=== PATIENT | female | born 1975 | race American Indian/Alaskan Native ===

== ENCOUNTER 2018-03-23 11:01 | Emergency (ER) | payer BC, OTHER ==
[2018-03-23 11:24] VITALS: RESP 16; TEMP 98.6; O2SAT 100
--- NOTE | 2018-03-23 11:53 | ED PDOC ---
Arrival/HPI - General Historian: Patient - History of Present Illness Time/Duration: > week Symptom Course: Intermittent Activities at Onset: Other (Walking up stairs) Context: Home <DeloresgreggLidia - Last Filed: 03/23/18 14:37> <Nicanor Clinton - Last Filed: 03/23/18 15:22> - General Chief Complaint: Upper Extremity Problem/Injury Time Seen by Provider: 03/23/18 11:21 - History of Present Illness Narrative History of Present Illness (Text): 03/23/18 11:48 This is a 42 year old female with PMH of anemia presenting to the ER for two week history of chest pain, SOB, neck stiffness and right arm numbness. She [place] and felt short of breath with associated chest pain. Since then, her symptoms have been intermittent and provoked with exertion. Chest pain is described as non radiating, sharp and 10/ 10 at worst. She has history of muscle spasms and states her neck stiffness and right arm numbness are similar to past. She went to her PCP on Monday and was told to take iron tablets. She admits to urinary frequency. She denies fevers, chills, nausea, vomiting, abdominal pain, headaches, melena, hematochezia, hematuria, diarrhea, constipation and sick contacts at home. She flew to [place] three weeks ago and had URI three weeks ago. PCP is Dr. Shine at [facility] (Lidia Medellin) Past Medical History - Provider Review Nursing Documentation Reviewed: Yes - Infectious Disease Hx of Infectious Diseases: None - Cardiac Hx Cardiac Disorders: No - Pulmonary Hx Respiratory Disorders: No - Neurological Hx Neurological Disorder: No - HEENT Hx HEENT Disorder: No - Renal Hx Renal Disorder: No - Endocrine/Metabolic Hx Endocrine Disorders: No - Hematological/Oncological Hx Blood Disorders: Yes Hx Anemia: Yes - Integumentary Hx Dermatological Disorder: No - Musculoskeletal/Rheumatological Hx Musculoskeletal Disorders: No - Gastrointestinal Hx Gastrointestinal Disorders: No - Genitourinary/Gynecological Hx Genitourinary Disorders: No - Psychiatric Hx Psychophysiologic Disorder: No Hx Substance Use: No - Anesthesia Hx Anesthesia: Yes <Lidia Medellin - Last Filed: 03/23/18 14:37> Family/Social History - Physician Review Nursing Documentation Reviewed: Yes Family/Social History: Unknown Family HX Smoking Status: Never Smoked Hx Alcohol Use: No Hx Substance Use: No <Lidia Medellin - Last Filed: 03/23/18 14:37> Allergies/Home Meds <Lidia Medellin - Last Filed: 03/23/18 14:37> <TolericoNicanor - Last Filed: 03/23/18 15:22> Allergies/Adverse Reactions: Allergies shellfish derived Allergy (Verified 03/23/18 11:17) RASH Review of Systems - Physician Review All systems were reviewed & negative as marked: Yes - Review of Systems Constitutional: Normal Eyes: Normal. absent: Vision Changes ENT: Normal. absent: Hearing Changes Respiratory: SOB. absent: Cough, Sputum, Wheezing Cardiovascular: Chest Pain. absent: Palpitations, Edema, Syncope Gastrointestinal: Normal. absent: Abdominal Pain, Constipation, Diarrhea, Nausea, Vomiting, Hematemesis Genitourinary Female: Frequency. absent: Dysuria, Hematuria, Vaginal Bleeding Musculoskeletal: Neck Pain, Other (right arm numbness) Skin: Normal Neurological: Normal. absent: Headache Endocrine: Normal. absent: Diaphoresis Psychiatric: Normal <Lidia Medellin - Last Filed: 03/23/18 14:37> Physical Exam Vital Signs Reviewed: Yes Temperature: Afebrile Blood Pressure: Normal Pulse: Regular Respiratory Rate: Normal Appearance: Positive for: Well-Appearing, Non-Toxic, Comfortable Pain Distress: None Mental Status: Positive for: Alert and Oriented X 3 - Systems Exam Head: Present: Atraumatic, Normocephalic Pupils: Present: PERRL Extroacular Muscles: Present: EOMI Conjunctiva: Present: Normal Mouth: Present: Moist Mucous Membranes Neck: Present: Normal Range of Motion, Other (tenderness on right side of neck) Respiratory/Chest: Present: Clear to Auscultation, Good Air Exchange. No: Respiratory Distress, Accessory Muscle Use, Wheezes, Tachypneic Cardiovascular: Present: Regular Rate and Rhythm, Normal S1, S2. No: Murmurs Abdomen: Present: Normal Bowel Sounds. No: Tenderness, Distention, Peritoneal Signs, Rebound, Guarding Back: Present: Normal Inspection Upper Extremity: Present: Normal Inspection, NORMAL PULSES. No: Cyanosis, Edema , Swelling Lower Extremity: Present: Normal Inspection. No: Edema, Swelling Neurological: Present: GCS=15, CN II-XII Intact, Speech Normal, Motor Func Grossly Intact, Normal Sensory Function Skin: Present: Warm, Dry, Normal Color. No: Rashes Psychiatric: Present: Alert, Oriented x 3, Normal Insight, Normal Concentration <Mini Medellinligia - Last Filed: 03/23/18 14:37> Vital Signs Temp Pulse Resp BP Pulse Ox 03/23/18 11:18 98.6 F 73 16 131/85 100 Medical Decision Making <Lidia Medellin - Last Filed: 03/23/18 14:37> <Nicanor Clinton - Last Filed: 03/23/18 15:22> ED Course and Treatment: 03/23/18 12:00 Impression: This is a 42 year old female with PMH of anemia presenting to the ER for two week history of chest pain, SOB, neck stiffness and right arm numbness. Differential not limited to: Anemia vs angina vs pericarditis vs PE vs muscle spasm vs heart failure Plan: -cbc, cmp -U/A, -EKG -d dimer -troponin -flexeril Progress: 03/23/18 12:02 EKG: Rate of 56bpm, sinus bradycardia, no ST elevations or depression. IL of 128ms and QRS of 78ms. FOBT: Lot: [id number] Exp: 03/2020 Negative FOBT 03/23/18 14:37 Patient is resting comfortably, vitals are stable and afebrile. Patient agrees with discharge and will follow up with PCP. (Lidia Medellin) 03/23/18 13:49 Seen and examined with the resident. Our history and physical exam reveals a young woman complaining of a several week history of dyspnea on exertion with chest pain neck pain and numbness. There is a history of anemia. She was seen by her PMD but is no better. Her exam is unremarkable. Workup has been begun. (Nicanor Clinton) - Lab Interpretations Lab Results: 03/23/18 13:00 03/23/18 13:00 Lab Results 03/23/18 13:00: D-Dimer, Quantitative < 200 03/23/18 13:00: Sodium 142, Potassium 3.6, Chloride 105, Carbon Dioxide 24, Anion Gap 17, BUN 10, Creatinine 0.6 L, Est GFR ( Amer) > 60, Est GFR ( Non-Af Amer) > 60, Random Glucose 83, Calcium 9.5, Total Bilirubin 0.8, AST 18, ALT 13, Alkaline Phosphatase 57, Troponin I < 0.01, NT-Pro-B Natriuret Pep 50, Total Protein 7.8, Albumin 4.5, Globulin 3.4, Albumin/Globulin Ratio 1.3 03/23/18 13:00: WBC 4.9, RBC 4.26, Hgb 9.8 L, Hct 31.0 L, MCV 72.8 L, MCH 23.0 L , MCHC 31.6, RDW 16.9 H, Plt Count 471 H, MPV 10.2, Gran % 52.5, Lymph % (Auto) 39.8 H, Charles % (Auto) 4.5, Eos % (Auto) 2.6, Baso % (Auto) 0.6, Gran # 2.58, Lymph # (Auto) 2.0, Charles # (Auto) 0.2, Eos # (Auto) 0.1, Baso # (Auto) 0.03 03/23/18 12:39: Urine Color Yellow, Urine Appearance Slight-cloudy, Urine pH 6.0 , Ur Specific [place] 1.015, Urine Protein Negative, Urine Glucose (UA) Negative , Urine Ketones 15 H, Urine Blood Negative, Urine Nitrate Negative, Urine Bilirubin Negative, Urine Urobilinogen 0.2, Ur Leukocyte Esterase Negative, Urine HCG, Qual Negative - Medication Orders Current Medication Orders: Discontinued Medications Cyclobenzaprine HCl (Flexeril) 5 mg PO STAT STA Stop: 03/23/18 11:46 Last Admin: 03/23/18 12:48 Dose: 5 mg Cyclobenzaprine HCl (Flexeril) 5 mg PO STAT STA Stop: 03/23/18 14:27 Last Admin: 03/23/18 15:21 Dose: 5 mg - PA / DATA OPERATIONS MANAGER / Resident Statement / has reviewed & agrees with the documentation as recorded. / has examined the patient and agrees with the treatment plan. <Lidia Medellin - Last Filed: 03/23/18 14:37> Disposition/Present on Arrival - Present on Arrival Any Indicators Present on Arrival: No History of DVT/PE: No History of Uncontrolled Diabetes: No Urinary Catheter: No History of Decub. Ulcer: No History Surgical Site Infection Following: None - Disposition Have Diagnosis and Disposition been Completed?: Yes Disposition Time: 15:00 Patient Plan: Discharge <Lidia Medellin - Last Filed: 03/23/18 14:37> - Present on Arrival Any Indicators Present on Arrival: No History of DVT/PE: No History of Uncontrolled Diabetes: No Urinary Catheter: No History of Decub. Ulcer: No - Disposition Have Diagnosis and Disposition been Completed?: Yes Patient Plan: Discharge <Nicanor Clinton - Last Filed: 03/23/18 15:22> - Disposition Diagnosis: Muscle spasm, Chest pain, Dyspnea Disposition: HOME/ ROUTINE Patient Problems: Current Active Problems Problem Status Onset Muscle spasm Acute Condition: GOOD Discharge Instructions (ExitCare): Chest Pain (ED) Additional Instructions: JEFRY ROSARIO, thank you for letting us take care of you today. Your provider was Price Clinton MD and you were treated for ARM NUMB/SOB. The emergency medical care you received today was directed at your acute symptoms. If you were prescribed any medication, please fill it and take as directed. It may take several days for your symptoms to resolve. Return to the Emergency Department if your symptoms worsen, do not improve, or if you have any other problems. Please contact your doctor or call one of the physicians/clinics you have been referred to that are listed on the Patient Visit Information form that is included in your discharge packet. Bring any paperwork you were given at discharge with you along with any medications you are taking to your follow up visit. Our treatment cannot replace ongoing medical care by a primary care provider outside of the emergency department. Thank you for allowing the [facility] team to be part of your care today. Please follow up with your PCP. Return to the ED for any worsening symptoms including chest pain and shortness of breath. Prescriptions: Cyclobenzaprine [Flexeril] 5 mg PO Q8 PRN #20 tab PRN Reason: Muscle Spasm Referrals: Lio Sotelo MD [Primary Care Provider] - Follow up with primary Forms: [employer] (Polish)
[2018-03-23 12:47] LABS: URINE APPEARANCE SLIGHT-CLOUDY (CLEAR); URINE BILIRUBIN NEGATIVE (NEGATIVE); URINE BLOOD NEGATIVE (NEGATIVE); URINE COLOR YELLOW (YELLOW); URINE GLUCOSE (UA) NEGATIVE (NEGATIVE); URINE LEUKOCYTE ESTERASE NEGATIVE Leu/uL (NEGATIVE); URINE PROTEIN NEGATIVE mg/dL (<30 mg/dL); URINE UROBILINOGEN 0.2 E.U./dL (<1 E.U./dL)
[2018-03-23 12:49] LABS: HCG,QUALITATIVE URINE NEGATIVE (NEGATIVE)
[2018-03-23 13:20] LABS: BASO # 0.03 K/mm3 (0.0-2.0); BASO % 0.6 % (0.0-3.0); EOS # 0.1 (0.0-0.7); EOS % 2.6 % (1.5-5.0); GRAN # 2.58 (1.4-6.5); GRAN % 52.5 % (50.0-68.0); HEMOGLOBIN 9.8 g/dL (12.0-16.0); LYMPH % 39.8 % (22.0-35.0); MEAN CELL VOLUME 72.8 fl (80.0-105.0); MEAN CORPUSCULAR HGB CONC 31.6 g/dl (31.0-37.0); MEAN PLATELET VOLUME 10.2 fl (7.0-11.0); MONO # 0.2 (0.1-0.6); MONO % 4.5 % (1.0-6.0); RBC 4.26 10^6/uL (3.5-6.1); RED CELL DISTRIBUTION WIDTH 16.9 % (11.5-14.5); WHITE BLOOD COUNT 4.9 10^3/ul (4.5-11.0)
[2018-03-23 13:58] LABS: BLOOD UREA NITROGEN 10 mg/dL (7-21); GFR AFRICAN-AMERICAN > 60; GFR NON-AFRICAN AMERICAN > 60
[2018-03-23 14:00] LABS: ALB/GLOB RATIO 1.3 (1.1-1.8); ALBUMIN 4.5 g/dL (3.0-4.8); ALT/SGPT 13 U/L (7-56); AST/SGOT 18 U/L (14-36); B-TYPE NATRIURETIC PEPTIDE 50 pg/mL (0-450); CALCIUM 9.5 mg/dL (8.4-10.5); TROPONIN I < 0.01 ng/mL
[2018-03-23 15:25] VITALS: BP 127/86; PULSE 74
--- NOTE | 2018-03-23 17:31 | CARD ---
APPROVED REPORT Date of service: 03/23/2018 EKG Measurement Heart [id number] <Conclusion> Sinus bradycardia Nonspecific T wave abnormality Abnormal ECG
== END 2018-03-23 15:24 | disposition home or self-care (01) ==
LOC: ED 11:01
DX: M62.838 Other muscle spasm (principal); R07.9 Chest pain, unspecified; R06.00 Dyspnea, unspecified